=== PATIENT | male | born 1955 | race Caucasian/White ===

== ENCOUNTER 2018-05-02 09:15 | Outpatient (CLI) | payer MEDICARE, SELFPAY ==
[2018-05-02 13:09] LABS: Hemoglobin A1C 8.1 % (4.5-6.2)
[2018-05-02 13:26] LABS: COMMENT (LAB VIEW ONLY) 33.95 mg/dL; Microalb ug/mg Crea 11.5 ug/mg Cr
[2018-05-02 13:33] LABS: Anion Gap 6.5 mmol/L (3-11); BUN 14 mg/dL (7-18); CO2 29.5 mmol/L (21.0-32.0); CREATININE 1.03 mg/dL (0.70-1.30); Calcium 8.7 mg/dL (8.5-10.1); Chloride 102 mmol/L (98-107); Cholesterol 167 mg/dL (50-200); Glucose 192 mg/dL (70-100); HDL Cholesterol 57 mg/dL (40-60); LDL CHOLESTEROL 97 mg/dL (<100); Potassium 3.7 mmol/L (3.5-5.1); Sodium 138 mmol/L (136-145); TSH (W/Ref FT4) 1.74 uIU/mL (0.358-3.74); Triglyceride 121 mg/dL (30-150)
== END 2018-05-02 09:35 ==
PROVIDERS: PCP Family Medicine; Visit Provider Family Medicine
DX: E10.8 Type 1 diabetes mellitus with unspecified complications (principal); E11.9 Type 2 diabetes mellitus without complications; E03.9 Hypothyroidism, unspecified
CPT/HCPCS: 36415; 80048; 80061; 83721; 82043; 82570; 83036; 84443

== ENCOUNTER 2018-07-17 11:43 | Outpatient (CLI) | payer MEDICARE, SELFPAY ==
--- NOTE | 2018-07-17 11:00 | DI.RAD_ITS ---
SYMPTOMS/DIAGNOSIS: CHANGE IN CHRONIC COUGH IN SMOKER, R05, F17.200, NICOTINE DEPENDENCE PA AND LATERAL CHEST: Comparison 05/27/10. The heart size and pulmonary vasculature are within normal limits. No focal infiltrates, effusions or pneumothoraces are identified. The lungs are hyperinflated consistent with underlying COPD. Degenerative changes are seen in the spine. IMPRESSION: COPD. No acute pulmonary process.
== END 2018-07-17 12:03 ==
PROVIDERS: PCP Family Medicine; Visit Provider Family Medicine
DX: R05 Cough (principal); F17.200 Nicotine dependence, unspecified, uncomplicated; J44.9 Chronic obstructive pulmonary disease, unspecified
CPT/HCPCS: 71046

== ENCOUNTER 2019-04-11 09:25 | Outpatient (CLI) | payer MEDICARE, MEDICAID, SELFPAY ==
[2019-04-11 13:37] LABS: Hemoglobin A1C 8.8 % (4.5-6.2)
[2019-04-11 13:43] LABS: ALT 17 U/L (16-63); AST 14 U/L (15-37); Albumin 3.4 g/dL (3.4-5.0); Alkaline Phosphatase 73 U/L (46-116); Anion Gap 5.8 mmol/L (3-11); BUN 16 mg/dL (7-18); Bilirubin, Total 1.1 mg/dL (0.2-1.0); CO2 30.2 mmol/L (21.0-32.0); CREATININE 1.03 mg/dL (0.70-1.30); Calcium 8.3 mg/dL (8.5-10.1); Calculated LDL 104 mg/dL; Chloride 105 mmol/L (98-107); Cholesterol 190 mg/dL (50-200); Glucose 214 mg/dL (70-100); HDL Cholesterol 48 mg/dL (40-60); Sodium 141 mmol/L (136-145); Total Protein 6.1 g/dL (6.4-8.2); Triglyceride 192 mg/dL (30-150); Vitamin B12 506 pg/mL (193-986)
[2019-04-11 14:28] LABS: COMMENT (LAB VIEW ONLY) 121.61 mg/dL; Microalb ug/mg Crea 4.1 ug/mg Cr
[2019-04-11 14:53] LABS: HCT 39.6 % (40.0-50.0); HGB 13.7 g/dL (13.5-17.5); Mean Corp. HGB Concentration 34.6 g/dL (32.0-36.0); Mean Corpuscular Hemoglobin 33.5 pg (27.0-33.0); Mean Corpuscular Volume 96.8 fL (80-95); Mean Platelet Volume 10.9 fL (8.0-11.0); Platelet Count 177 x1000/uL (130-400); RBC 4.09 m/cumm (4.50-6.00); RBC Distribution Width 12.7 % (11.8-14.1); White Blood Cell Count 4.99 k/cumm (4.4-10.8)
== END 2019-04-11 09:45 ==
PROVIDERS: PCP Family Medicine; Visit Provider Family Medicine
DX: E11.9 Type 2 diabetes mellitus without complications (principal); E53.8 Deficiency of other specified B group vitamins
CPT/HCPCS: 36415; 80053; 80061; 85027; 82043; 82570; 82607; 83036

== ENCOUNTER 2020-05-05 11:41 | Outpatient (CLI) | payer MEDICARE, MEDICAID, SELFPAY ==
[2020-05-05 14:09] LABS: Abs Immature Grans 0.02 10^3/uL (0.0-0.06); Absolute Basophil Count 0.03 10^3/uL (0.0-0.2); Absolute Eosinophil Count 0.13 10^3/uL (0.0-0.7); Absolute Lymphocyte Count 1.06 10^3/uL (1.2-3.4); Absolute Monocyte Count 0.39 10^3/uL (0.1-0.8); Absolute Neutrophil Count 4.64 10^3/uL (1.2-6.7); Basophils % 0.5; Eosinophils % 2.1; HCT 40.3 % (40.0-50.0); HGB 14.2 g/dL (13.5-17.5); Immature Grans % 0.3; Lymphocytes % 16.9; MCH 32.3 pg (27.0-33.0); MCHC 35.2 % (32.0-36.0); MCV 91.8 fL (80-95); MPV 10.4 fL (8.0-11.0); Monocytes % 6.2; Nucleated RBC 0 %; Platelet Count 215 10^3/uL (130-400); RBC 4.39 10^6/uL (4.36-5.78); RDW-SD 40.3 fL; WBC 6.27 10^3/uL (4.4-10.8)
[2020-05-05 14:15] LABS: Hemoglobin A1C 8.1 % (<5.7)
[2020-05-05 14:37] LABS: COMMENT (LAB VIEW ONLY) 89.64 mg/dL; Microalb ug/mg Crea 43.8 ug/mg Cr
[2020-05-05 15:01] LABS: ALT 18 U/L (16-63); AST 12 U/L (15-37); Albumin 3.9 g/dL (3.4-5.0); Alkaline Phosphatase 118 U/L (46-116); Anion Gap 9.3 mmol/L (3-11); BUN 23 mg/dL (7-18); Bilirubin, Total 1.1 mg/dL (0.2-1.0); CO2 27.7 mmol/L (21.0-32.0); CREATININE 1.41 mg/dL (0.70-1.30); Calcium 8.4 mg/dL (8.5-10.1); Calculated LDL 102 mg/dL (<100); Chloride 97 mmol/L (98-107); Cholesterol 192 mg/dL (<200); Estimated GFR 50.77 (mL/min/1.73m2); HDL Cholesterol 51 mg/dL (40-60); Potassium 4.3 mmol/L (3.5-5.1); Sodium 134 mmol/L (136-145); TSH 6.49 uIU/mL (0.36-3.74); Total Protein 6.6 g/dL (6.4-8.2); Triglyceride 199 mg/dL (<150)
[2020-05-05 15:08] LABS: Glucose 536 mg/dL (74-106)
== END 2020-05-05 12:01 ==
PROVIDERS: PCP Family Medicine; Visit Provider Family Medicine
DX: E10.69 Type 1 diabetes mellitus with other specified complication (principal); J44.9 Chronic obstructive pulmonary disease, unspecified; I10 Essential (primary) hypertension
CPT/HCPCS: 36415; 80053; 80061; 82043; 82570; 83036; 84443; 85025

== ENCOUNTER 2020-05-05 18:15 | Outpatient (CLI) | payer MEDICARE, MEDICAID, SELFPAY ==
--- NOTE | 2020-05-05 11:30 | DI.RAD_ITS ---
EXAM: XR CHEST 2V PA LATERAL CLINICAL HISTORY: heavy smoker w worsening cough. R05 COUGH TECHNIQUE: 2D digital imaging was performed. COMPARISON: CR XR CHEST 2V PA LATERAL from 07/17/2018 FINDINGS: MEDIASTINUM: Normal. HEART: Normal. PULMONARY VASCULATURE: Normal. LUNGS: There is an area of scarring or infiltrate in the right lung base which was not present on the prior examination. PLEURAL SPACE: No pleural effusion or pneumothorax. BONE:Within normal limits for the patient's age. OTHER FINDINGS:Normal. IMPRESSION: New area of scarring or infiltrate in the right lung base. CT scan of the chest should be considered for further evaluation. DATA REPOSITORY: RADIATION DOSE DELIVERED:
== END 2020-05-05 18:35 ==
PROVIDERS: PCP Family Medicine; Visit Provider Family Medicine
DX: R91.8 Other nonspecific abnormal finding of lung field (principal); F17.210 Nicotine dependence, cigarettes, uncomplicated; R05 Cough; E10.69 Type 1 diabetes mellitus with other specified complication; J44.9 Chronic obstructive pulmonary disease, unspecified; I10 Essential (primary) hypertension
CPT/HCPCS: 36415; 80053; 80061; 71046; 82043; 82570; 83036; 84443; 85025

== ENCOUNTER 2020-05-06 13:29 | Outpatient (CLI) | payer MEDICARE, MEDICAID, SELFPAY ==
--- NOTE | 2020-05-06 09:45 | DI.CT_ITS ---
EXAM: CT CHEST W CLINICAL HISTORY: new infiltrate or scarring Right lower lung on CXR, R91.8 TECHNIQUE: Imaging Protocol: Axial computed tomography images with coronal and sagittal reformatted images were created and reviewed CONTRAST MATERIAL: Intravenous: Omnipaque 350 Contrast volume:70 mL. COMPARISON: CT CHEST WITH CONTRAST from 05/31/2011 CT UPPER ABD WITH CONTRAST (P) from 01/01/2014 CT UPPER ABD WITH CONTRAST (P) from 01/01/2014 CR XR CHEST 2V PA LATERAL from 05/05/2020 FINDINGS: Tracheobronchial tree: Patent where visualized. Mediastinum and Zoila: No dominant adenopathy or fluid collection. Pulmonary parenchyma: No acute consolidating infiltrates. No pulmonary masses. There is unchanged s carring in the right middle lobe, left lingula and the periphery of the left lower lobe. Centrilobul ar emphysematous changes are present in the lungs. Pleura: No effusion or pneumothorax. Heart: The heart is not dilated. Mild coronary artery calcification. No significant pericardial effu xiomy. Aorta: Thoracic aorta non-dilated. Atherosclerosis. Upper abdomen: There is a new wedge-shaped area of decreased attenuation in the upper pole of the ri ght kidney. Lymph nodes: Within normal limits. Bones: Degenerative changes. Soft tissues: Unremarkable. IMPRESSION: 1. Unchanged scarring in the right middle lobe, left lingula and periphery of the left lower lobe. 2. No evidence of a pulmonary mass or thoracic adenopathy. 3. New wedge-shaped area of decreased attenuation in the upper pole of the right kidney. Differentia l considerations include parenchymal scarring, pyelonephritis or neoplasm. CT or MRI of the abdomen is recommended for further evaluation. RADIATION DOSE DELIVERED: 331.96mGy.cm Total DLP DATA REPOSITORY: All CT scans at this facility are submitted to the National Radiology Data Registry (NRDR) Dose Index Registry (DIR) with the [employer] ([employer]). RADIATION OPTIMIZATION: All CT scans at this facility use at least one of these dose optimization te chniques: automated exposure control; mA and/or kV adjustment per patient size (includes targeted exa ms where dose is matched to clinical indication); or iterative reconstruction.
[2020-05-06] MEDS: Omnipaque 350 MG/ML 100 ML BTL IV (15:34)
== END 2020-05-06 13:49 ==
PROVIDERS: PCP Family Medicine; Visit Provider Family Medicine
DX: J98.4 Other disorders of lung (principal); R93.421 Abnormal radiologic findings on diagnostic imaging of right kidney
CPT/HCPCS: 71260; J3490

== ENCOUNTER 2020-05-15 04:15 | Outpatient (CLI) | payer MEDICARE, MEDICAID, SELFPAY ==
--- NOTE | 2020-05-15 13:29 | DI.CT_ITS ---
EXAM: CT ABDOMEN PELVIS W CLINICAL HISTORY: Abnormal CT scan of the right kidney,R93.429 TECHNIQUE: Imaging Protocol: Axial computed tomography images with coronal and sagittal reformatted images were created and reviewed CONTRAST MATERIAL: Intravenous: Omnipaque 350 Contrast volume:99 mL Oral: Yes COMPARISON: CT UPPER ABD WITH CONTRAST (P) from 01/01/[address] CHEST W from 05/06/2020 FINDINGS: ABDOMEN: Lung Bases: Scarring seen in the lung bases. Liver: Normal density. No measurable mass. Portal, Superior Mesenteric, and Splenic Veins: Unremarkable. Gallbladder and Biliary Tract: No radiodense calculus or dilation. Pancreas: Normal density, no abnormal calcifications or inflammatory process. Spleen: Calcified granulomas are seen in the spleen. There are a few areas of decreased attenuation in the spleen. The too small for further characterization. They may reflect small cysts or hemangio ma. Adrenals: No masses seen. Kidneys: Normal size, contour and axis. No radiodense stones or obstructive uropathy. There is a area of severe cortical thinning in the lateral aspect of the right kidney. It appears to reflect renal cortical scarring. Abdominal Aorta: Abdominal portion non-dilated. Atherosclerosis. Bowel: No obstruction or bowel wall thickening. No evidence of acute appendicitis. Peritoneal Cavity: No ascites, collection or mesenteric inflammatory response. Lymph Nodes: Within normal limits. Bones: No acute osseous abnormality. Soft Tissues: Unremarkable. PELVIS: Bladder: Symmetric distention, no gross wall thickening. Reproductive Organs: Unremarkable as visualized. Lymph Nodes: Within normal limits. Bones: Within normal limits. IMPRESSION: Marked cortical thinning of the lateral aspect of the right kidney suspicious for renal cortical scar ring. An MRI of the kidneys without and with contrast may be considered to exclude a mass. RADIATION DOSE DELIVERED: 647.55mGy.cm Total DLP DATA REPOSITORY: All CT scans at this facility are submitted to the National Radiology Data Registry (NRDR) Dose Index Registry (DIR) with the [employer] ([employer]). RADIATION OPTIMIZATION: All CT scans at this facility use at least one of these dose optimization te chniques: automated exposure control; mA and/or kV adjustment per patient size (includes targeted exa ms where dose is matched to clinical indication); or iterative reconstruction.
[2020-05-15] MEDS: Omnipaque 350 MG/ML 100 ML BTL IJ (13:38)
[2020-05-15] MEDS: Normal Saline - Diluent 50 ML VIAL IV (13:39)
[2020-05-15] MEDS: Normal Saline Flush 10 ML SYR IVP (13:40)
[2020-05-15] MEDS: Omnipaque 350 MG/ML 50 ML BTL PO (13:42)
== END 2020-05-15 04:35 ==
PROVIDERS: PCP Family Medicine; Visit Provider Family Medicine
DX: R93.421 Abnormal radiologic findings on diagnostic imaging of right kidney (principal)
CPT/HCPCS: 74177; J3490; Q9967

== ENCOUNTER 2020-09-14 11:07 | Outpatient (CLI) | payer MEDICARE, MEDICAID, SELFPAY ==
[2020-09-14 12:37] LABS: ALT 21 U/L (16-63); AST 18 U/L (15-37); Albumin 3.9 g/dL (3.4-5.0); Alkaline Phosphatase 145 U/L (46-116); Anion Gap 11.7 mmol/L (3-11); BUN 17 mg/dL (7-18); CO2 27.3 mmol/L (21.0-32.0); CREATININE 1.2 mg/dL (0.70-1.30); Calcium 8.5 mg/dL (8.5-10.1); Calculated LDL 131 mg/dL (<100); Chloride 95 mmol/L (98-107); Cholesterol 230 mg/dL (<200); HDL Cholesterol 55 mg/dL (40-60); Sodium 134 mmol/L (136-145); Triglyceride 222 mg/dL (<150)
[2020-09-14 12:40] LABS: Hemoglobin A1C 8.8 % (<5.7)
[2020-09-14 14:22] LABS: Glucose 522 mg/dL (74-106)
[2020-09-14 19:17] LABS: PSA, Screening 0.7 ng/mL (0.0-4.5)
== END 2020-09-14 11:08 | disposition home or self-care (01) ==
LOC: LOS 11:08
PROVIDERS: PCP Family Medicine; Visit Provider Family Medicine
DX: E11.9 Type 2 diabetes mellitus without complications (principal); N40.0 Benign prostatic hyperplasia without lower urinary tract symptoms; Z12.5 Encounter for screening for malignant neoplasm of prostate
CPT/HCPCS: 36415; 80053; 80061; 84153; 83036

== ENCOUNTER 2021-02-18 13:33 | Outpatient (CLI) | payer MEDICARE, MEDICAID, SELFPAY ==
--- NOTE | 2021-02-18 13:15 | DI.RAD_ITS ---
Exam(s) XR FOOT LT COMPLETE EXAM: XR FOOT LT COMPLETE CLINICAL HISTORY: left great toe ulcer with associated cellulitis, r/o osteomylitis, L03.90. TECHNIQUE: 2D digital imaging was performed. COMPARISON: No exams were available for comparison FINDINGS: There is no evidence of fracture nor diastasis of the Lisfranc joint. Triangular density in the medi al aspect of the foot adjacent to the navicular tuberosity is most probably an accessory ossicle or s esamoid within the distal tibialis posterior tendon. There is no inferior calcaneal spur. No pes planus. No obvious radiographic evidence of osteomyelit is IMPRESSION: As above. However, I note that there is a question of possible osteomyelitis of the great toe. Ther efore recommend additional dedicated radiographs of the right great toe. DATA REPOSITORY: RADIATION DOSE DELIVERED:
== END 2021-02-18 13:53 ==
PROVIDERS: PCP Nurse Practitioner Family; Visit Provider Nurse Practitioner Family
DX: L03.032 Cellulitis of left toe (principal); L97.529 Non-pressure chronic ulcer of other part of left foot with unspecified severity
CPT/HCPCS: 73630

== ENCOUNTER 2021-02-19 14:52 | Outpatient (CLI) | payer MEDICARE, MEDICAID, SELFPAY ==
--- NOTE | 2021-02-19 14:45 | DI.RAD_ITS ---
Exam(s) XR TOE LT GREAT EXAM: XR TOE LT GREAT CLINICAL HISTORY: Rule out osteomyelitis L08.9 INFECTION LT TOE TECHNIQUE: COMPARISON: CR XR FOOT LT COMPLETE from 02/18/2021 FINDINGS: Three views were obtained. There is mild soft tissue swelling of the toe. There are degenerative ch anges involving IP joints and the 1st MTP joint. There is no specific evidence of osteomyelitis. If there is a clinical suspicion of osteomyelitis, additional evaluation with would be recommended. IMPRESSION: RADIATION DOSE DELIVERED: Total DLP
== END 2021-02-19 15:12 ==
PROVIDERS: PCP Nurse Practitioner Family; Visit Provider Nurse Practitioner Family
DX: L08.9 Local infection of the skin and subcutaneous tissue, unspecified (principal); M19.072 Primary osteoarthritis, left ankle and foot
CPT/HCPCS: 73660

== ENCOUNTER 2021-04-02 03:34 | Outpatient (CLI) | payer MEDICARE, MEDICAID, SELFPAY ==
[2021-04-02 14:41] LABS: Bilirubin Small (Negative); Blood Negative (Negative); Clarity Clear (Clear); Glucose Negative (Negative); Ketones 15 mg/dL (Negative); Leukocyte Esterase Negative (Negative); Nitrite Negative (Negative); Specific Gravity 1.025 (1.005-1.025); pH 6.5 (5-8)
[2021-04-02 15:01] LABS: Bacteria Moderate HPF (Negative); Crystals Negative HPF (Negative); Epithelial Cells Rare HPF (Negative); Mucus Heavy (Negative); Other Cells Negative (Negative); RBC Negative HPF (0-2)
[2021-04-02 15:02] LABS: C & S Indicated? Yes; Casts Negative LPF (Negative)
[2021-04-02 15:42] LABS: Calculated LDL 81 mg/dL (<100); Cholesterol 181 mg/dL (<200); HDL Cholesterol 61 mg/dL (40-60); TSH 1.65 uIU/mL (0.36-3.74); Triglyceride 198 mg/dL (<150)
[2021-04-02 15:56] LABS: ALT 26 U/L (16-63); AST 23 U/L (15-37); Albumin 4.1 g/dL (3.4-5.0); Alkaline Phosphatase 116 U/L (46-116); Anion Gap 5.9 mmol/L (3-11); BUN 19 mg/dL (7-18); Bilirubin, Total 1.2 mg/dL (0.2-1.0); CO2 33.1 mmol/L (21.0-32.0); CREATININE 1.4 mg/dL (0.70-1.30); Calcium 8.9 mg/dL (8.5-10.1); Chloride 105 mmol/L (98-107); Estimated GFR 51.02 (mL/min/1.73m2); Sodium 144 mmol/L (136-145)
[2021-04-02 16:13] LABS: Glucose 46 mg/dL (74-106)
[2021-04-02 22:24] LABS: PSA, Screening 0.5 ng/mL (0.0-4.5)
== END 2021-04-02 03:35 | disposition home or self-care (01) ==
LOC: LBO 03:34
PROVIDERS: Family Medicine; PCP Nurse Practitioner Family; Visit Provider Nurse Practitioner Family
DX: I10 Essential (primary) hypertension (principal); E11.9 Type 2 diabetes mellitus without complications; R32 Unspecified urinary incontinence; Z12.5 Encounter for screening for malignant neoplasm of prostate; Z80.42 Family history of malignant neoplasm of prostate
CPT/HCPCS: 36415; 80053; 80061; 84153; 81003; 81015; 84443; 87086

== ENCOUNTER 2021-06-29 11:45 | Outpatient (CLI) | payer MEDICARE, MEDICAID, SELFPAY ==
--- NOTE | 2021-06-29 11:30 | DI.RAD_ITS ---
Exam(s) XR ANKLE LT COMPLETE EXAM: XR ANKLE LT COMPLETE CLINICAL HISTORY: L ankle injury TECHNIQUE: 2D digital imaging was performed of the left ankle. Six images were obtained. AP, later al and oblique views were obtained. COMPARISON: No exams were available for comparison FINDINGS: BONES: There is an acute oblique fracture through the distal left fibula. It lies 1.5 cm above the a nkle joint. There is a very mild lateral displacement of the distal fracture. No bony destructive l esion is seen. JOINTS:The ankle mortise is normally aligned. SOFT TISSUE: There is soft tissue swelling laterally. Atherosclerosis is present. IMPRESSION: Oblique minimally displaced fracture involving the distal left fibula with associated soft tissue swe lling. DATA REPOSITORY: RADIATION DOSE DELIVERED:
== END 2021-06-29 11:46 | disposition home or self-care (01) ==
LOC: DIORS 11:46
PROVIDERS: PCP Nurse Practitioner Family; Referring Provider Nurse Practitioner Family; Visit Provider Student in an Organized Health Care Education/Training Program
DX: S82.62XA Displaced fracture of lateral malleolus of left fibula, initial encounter for closed fracture; W00.0XXA Fall on same level due to ice and snow, initial encounter; E10.69 Type 1 diabetes mellitus with other specified complication
CPT/HCPCS: 99203; 99213; 73610

== ENCOUNTER 2021-07-27 14:01 | Outpatient (CLI) | payer MEDICARE, MEDICAID, SELFPAY ==
--- NOTE | 2021-07-27 13:45 | DI.RAD_ITS ---
Exam(s) XR ANKLE LT COMPLETE EXAM: XR ANKLE LT COMPLETE CLINICAL HISTORY: left ankle fx TECHNIQUE: 2D digital imaging was performed of the left ankle. Three images were obtained. AP, lat eral and oblique views were obtained. COMPARISON: CR XR ANKLE LT COMPLETE from 06/29/2021 FINDINGS: BONES: There has been no change in alignment of the distal fibular fracture. No new fracture or disl ocation is seen. No bony destructive lesion is seen. JOINTS:The ankle mortise is normally aligned. SOFT TISSUE: There is soft tissue swelling about the ankle. IMPRESSION: Stable distal fibular fracture. DATA REPOSITORY: RADIATION DOSE DELIVERED:
== END 2021-07-27 14:02 | disposition home or self-care (01) ==
LOC: DIORS 14:02
PROVIDERS: PCP Nurse Practitioner Family; Referring Provider Nurse Practitioner Family; Visit Provider Student in an Organized Health Care Education/Training Program
DX: S82.62XD Displaced fracture of lateral malleolus of left fibula, subsequent encounter for closed fracture with routine healing; X58.XXXD Exposure to other specified factors, subsequent encounter; E10.69 Type 1 diabetes mellitus with other specified complication; I10 Essential (primary) hypertension; J44.9 Chronic obstructive pulmonary disease, unspecified
CPT/HCPCS: 99214; 73610

== ENCOUNTER → 2021-07-29 14:29 | Outpatient (BNVA) | payer MEDICARE, MEDICAID, SELFPAY | PROVIDERS: PCP Nurse Practitioner Family; Referring Provider Student in an Organized Health Care Education/Training Program; Visit Provider Physical Therapy Assistant | DX: S81.802A Unspecified open wound, left lower leg, initial encounter (principal); X58.XXXA Exposure to other specified factors, initial encounter; F17.210 Nicotine dependence, cigarettes, uncomplicated; E10.69 Type 1 diabetes mellitus with other specified complication; J44.9 Chronic obstructive pulmonary disease, unspecified | CPT/HCPCS: 99214 ==

== ENCOUNTER → 2021-08-02 13:35 | Outpatient (BNVA) | payer MEDICARE, MEDICAID, SELFPAY | PROVIDERS: PCP Nurse Practitioner Family; Referring Provider Nurse Practitioner Family; Visit Provider Physical Therapy Assistant | DX: S81.802A Unspecified open wound, left lower leg, initial encounter (principal); X58.XXXA Exposure to other specified factors, initial encounter; E10.9 Type 1 diabetes mellitus without complications; J44.9 Chronic obstructive pulmonary disease, unspecified; F17.210 Nicotine dependence, cigarettes, uncomplicated ==

== ENCOUNTER → 2021-08-03 12:59 | Outpatient (BNVA) | payer MEDICARE, MEDICAID, SELFPAY | PROVIDERS: PCP Nurse Practitioner Family; Referring Provider Nurse Practitioner Family; Visit Provider Physical Therapy Assistant | DX: S81.802A Unspecified open wound, left lower leg, initial encounter (principal); X58.XXXA Exposure to other specified factors, initial encounter; E10.9 Type 1 diabetes mellitus without complications; J44.9 Chronic obstructive pulmonary disease, unspecified; F17.210 Nicotine dependence, cigarettes, uncomplicated | CPT/HCPCS: 99213 ==

== ENCOUNTER → 2021-08-06 11:05 | Outpatient (BNVA) | payer MEDICARE, MEDICAID, SELFPAY | PROVIDERS: PCP Nurse Practitioner Family; Referring Provider Nurse Practitioner Family; Visit Provider Physical Therapy Assistant | DX: S91.002D Unspecified open wound, left ankle, subsequent encounter (principal); X58.XXXD Exposure to other specified factors, subsequent encounter | CPT/HCPCS: 99213 ==

== ENCOUNTER → 2021-08-13 09:54 | Outpatient (BNVA) | payer MEDICARE, MEDICAID, SELFPAY ==
--- NOTE | 2021-11-15 00:11 | ED.PROG_ITS ---
Date of service: 11/15/21 Time of Service: 23:11 Medical Decision Making I was contacted for medical control. Was contacted by ems, patient had been hypoglycemic. Patient was given D10, as well as oral supplementation. Patient is feeling much better and his blood sugar is now in the 120s. Patient is refusing transport by EMS to the ER. EMS reports that patient is ANO x4, family members are there, and will be with him throughout the rest of the evening. EMS made it clear to the patient that they were happy to bring him to the ER, and I was also happy to see him.. Patient has continued to refuse transport and would like to stay at home. Family is in agreement with this plan. EMS reports no other complaints. Discharge Plan Discharge Details Reason For Visit: Wound Care Attending Provider: Anastasiia Infante Primary Care Provider: Zach Childs Home Meds and New Rx's Prescriptions: No Action oxybutynin chloride 5 mg tablet extended release 24hr 5 mg PO DAILY Qty: 90 4RF (DME) lancets [OneTouch Delica Lancets] 33 gauge misc See Rx Instructions .ROUTE .MEDSUPPLY Qty: 400 4RF Rx Instructions: Check blood sugar 3 times a day (DME) OneTouch Ultra Blue Test Strip Strip See Dose Instructions .Route .MEDSUPPLY Qty: 300 4RF Dose Instruction: One BID Rx Instructions: Three times daily valsartan [Diovan] 160 mg tablet 160 mg PO DAILY Qty: 90 3RF lovastatin 20 mg tablet 20 mg PO DAILY Qty: 90 3RF Rx Instructions: 4-2-21 increased dosage/take one tablet daily levothyroxine 100 mcg tablet 100 mcg PO DAILY Qty: 30 11RF vitamin E 400 UNIT tablet 400 unit PO DAILY ginkgo biloba 400 MG capsule 400 mg PO QAM Fish Oil 1 EACH capsule 1 ea PO DAILY thiamine HCl (vitamin B1) [Vitamin B-1] 100 MG tablet 100 mg PO DAILY Qty: 90 4RF (DME) pen needle, diabetic [Comfort EZ Pen Roberts] 31 gauge x 5/16 needle See Dose Instructions .ROUTE .MEDSUPPLY Qty: 300 6RF Dose Instruction: As directed Rx Instructions: 1 each SC 5x/day (DME) blood sugar diagnostic Strip 1 ea Miscellaneous AC & HS Qty: 400 5RF Rx Instructions: DX: E10.65 TYPE I DM, POOR CONTROL, LABILE SUGARS amlodipine 10 mg tablet 10 mg PO DAILY Qty: 90 3RF insulin aspart U-100 [Novolog Flexpen U-100 Insulin] 100 unit/mL (3 mL) insulin pen 6 unit SC TID Qty: 15 2RF Rx Instructions: 2-6 Units per sliding scale sertraline 100 mg tablet 150 mg PO Q24H Qty: 45 11RF Levemir FlexTouch U-100 Insuln 100 unit/mL (3 mL) insulin pen 12 unit SC BID Qty: 15 4RF Gvoke HypoPen 2-Pack 1 mg/0.2 mL auto-injector 1 mg subcut ONCE Qty: 0.4 3RF Rx Instructions: as a single dose; may repeat once after 15 minutes if no response
== END ==
PROVIDERS: PCP Nurse Practitioner Family; Referring Provider Nurse Practitioner Family; Visit Provider Physical Therapy Assistant
DX: S91.002D Unspecified open wound, left ankle, subsequent encounter (principal); X58.XXXD Exposure to other specified factors, subsequent encounter; F17.210 Nicotine dependence, cigarettes, uncomplicated
CPT/HCPCS: 99213

== ENCOUNTER 2022-08-24 18:46 | Emergency (ER) | payer MEDICARE, MEDICAID, SELFPAY ==
[2022-08-24 18:56] VITALS: BP 158/67; PULSE 82; RESP 16; TEMP 36.9; O2SAT 97
--- NOTE | 2022-08-24 19:18 | W.ED.GENAD ---
Discharge Plan Disposition Patient Disposition: Home Discharge Details Clinical Impression: Laceration of skin of scalp, Fall Primary Care Provider: Zach Childs ED Provider: Joceline Chahal Meds and New Rx's Prescriptions: No Action multivitamin Tablet 1 tab PO DAILY valsartan [Diovan] 160 mg tablet 160 mg PO DAILY Qty: 90 3RF lovastatin 20 mg tablet 20 mg PO DAILY Qty: 90 3RF Rx Instructions: 4-2-21 increased dosage/take one tablet daily levothyroxine 100 mcg tablet 100 mcg PO DAILY Qty: 30 11RF thiamine HCl (vitamin B1) [Vitamin B-1] 100 mg tablet 100 mg PO DAILY Qty: 90 4RF vitamin E 400 UNIT tablet 400 unit PO DAILY (DME) pen needle, diabetic [Comfort EZ Pen [place]] 31 gauge x 5/16 needle See Dose Instructions .ROUTE .MEDSUPPLY Qty: 300 6RF Dose Instruction: As directed Rx Instructions: 1 each SC 5x/day Gvoke HypoPen 2-Pack 1 mg/0.2 mL auto-injector 1 mg subcut ONCE Qty: 0.4 3RF Rx Instructions: as a single dose; may repeat once after 15 minutes if no response oxybutynin chloride 5 mg tablet extended release 24hr 5 mg PO DAILY Qty: 90 4RF amlodipine 10 mg tablet 10 mg PO DAILY Qty: 90 3RF fluoxetine 20 mg tablet 20 mg PO DAILY Qty: 90 3RF sertraline 100 mg tablet 150 mg PO Q24H Qty: 45 11RF (DME) blood sugar diagnostic Strip 1 ea Miscellaneous AC & HS Qty: 400 5RF Rx Instructions: DX: E10.65 TYPE I DM, POOR CONTROL, LABILE SUGARS , test up to 4 times daily Levemir FlexTouch U-100 Insuln 100 unit/mL (3 mL) insulin pen 12 unit SC BID Qty: 15 4RF insulin aspart U-100 [Novolog FlexPen U-100 Insulin] 100 unit/mL (3 mL) insulin pen 6 unit SC TID Qty: 15 2RF Rx Instructions: 2-6 Units per sliding scale (DME) lancets [OneTouch Delica Lancets] 33 gauge misc See Rx Instructions .ROUTE .MEDSUPPLY Qty: 400 4RF Rx Instructions: Check blood sugar 3 times a day Discharge Instructions Instructions: Head Injury (ED), Head Laceration (ED) Additional Instructions: Leave the sutures alone for the next 12 to 24 hours. Then you may wash them under running soap and water. No soaking. Sutures need to be removed in 5 to 7 days. Please return or be seen sooner for any signs of infection including increased redness, swelling drainage or any concerns. Please be seen sooner for any vomiting, worsening headache, worsening confusion, numbness tingling or weakness. At this time you have declined head CT and I am unable to rule out skull fracture or underlying intracranial bleeding. Please take Tylenol or Ibuprofen with food every 4-6 hours as needed for pain and swelling. The Xray result is not back yet, we will call you if anything is abnormal. Wear the sling as needed for comfort. Referrals: Zach Childs, TUBE MAN [Primary Care Provider] - 3 days Medical Decision Making Discussed benefits and risks of CT imaging verbalized understanding, I did discuss that I cannot rule out skull fracture or intracranial bleeding without any head CT they declined at this time. Patient denies any headache, loss of consciousness neck pain or blurry vision. Laceration anesthetized with 1% lidocaine with epinephrine. Wound care being performed by radio/tv technician at this time. Patient tolerated well. Patient complaining of left shoulder pain, and additional 1 cc of lidocaine with epi infiltrated to the lower part of the laceration. Patient still declining head CT. Left shoulder x-ray ordered. Laceration anesthetized with 1.5% lidocaine with epinephrine, anesthesia achieved, wound cleaned with normal saline and chlorhexidine. Laceration repaired with four-point no simple interrupted sutures #4. Patient tolerated well. Discussed home care and to have sutures removed in 5 to 7 days. Patient given a sling. Discussed home care instructions. This text was generated using locration system, please disregard any oddities of phrase or misspellings. Imaging Data Radiologic Study: Imaging: X-Ray Radiologist's impression: FINDINGS: Bones/joints: No acute fracture or dislocation Soft tissues: Normal. IMPRESSION: No acute findings. Thank you for allowing us to participate in the care of your patient. Dictated and Authenticated by: David Painting MD [facility] General Mode of arrival: ambulatory. Date/Time Provider Initiated Documentation: 08/24/22 19:05. Limitations to Documentation: no limitations. Information obtained by: patient, RN notes reviewed and old records reviewed. HPI Narrative: 67-year-old male presents to the ER with a chief complaint of left forehead scalp laceration which occurred just approximately an hour prior to arrival. Patient had a mechanical fall where he fell down a step hitting his head on a door frame. He denies any loss of consciousness no neck pain. He does have a past medical history COPD type 1 diabetes mellitus, traumatic brain injury, and need anemia and alcoholism. He does endorse 1 alcoholic beverage prior to arrival. He is alert and oriented no other injuries noted. He denies taking any blood thinners or aspirin daily. Family placed couple of Steri-Strips prior to arrival. Related Data Home Medications Medication Instructions Recorded Confirmed vitamin E 400 unit tablet 400 unit PO DAILY 10/11/12 06/09/22 pen needle, diabetic 31 gauge x #300 ea 03/02/18 06/09/2211/08 (Comfort EZ Pen [place]) levothyroxine 100 mcg tablet 100 mcg PO DAILY #30 tabs 08/12/21 06/09/22 lovastatin 20 mg tablet 20 mg PO DAILY #90 tabs 08/12/21 06/09/22 valsartan 160 mg tablet (Diovan) 160 mg PO DAILY #90 tab-caps 08/12/21 06/09/22 glucagon 1 mg/0.2 mL subcutaneous 1 mg (0.2 mL) subcut ONCE #0.4 mL 10/20/21 06/09/22 auto-injector (Gvoke HypoPen 2-Pack) thiamine HCl (vitamin B1) 100 mg 100 mg PO DAILY #90 tabs 02/10/22 06/09/22 tablet (Vitamin B-1) oxybutynin chloride 5 mg 5 mg PO DAILY #90 tabs 02/14/22 06/09/22 tablet,extended release 24 hr multivitamin 1 tab PO DAILY 03/24/22 06/09/22 amlodipine 10 mg tablet 10 mg PO DAILY #90 tabs 07/07/22 fluoxetine 20 mg tablet 20 mg PO DAILY #90 tabs 07/07/22 sertraline 100 mg tablet 150 mg PO Q24H #45 tabs 07/07/22 blood sugar diagnostic #400 strips 07/15/22 insulin detemir U-100 100 unit/mL 12 unit (0.12 mL) subcut BID #15 mL 08/08/22 (3 mL) subcutaneous pen (Levemir FlexTouch U-100 Insulin) insulin aspart U-100 100 unit/mL 6 unit (0.06 mL) subcut TID #15 mL 08/18/22 (3 mL) subcutaneous pen (Novolog FlexPen U-100 Insulin aspart) lancets 33 gauge (OneTouch Delica #400 ea 08/18/22 Lancets) Previous Rx's Medication Instructions Recorded pen needle, diabetic 31 gauge x #300 ea 03/02/1811/08 (Comfort EZ Pen [place]) levothyroxine 100 mcg tablet 100 mcg PO DAILY #30 tabs 08/12/21 lovastatin 20 mg tablet 20 mg PO DAILY #90 tabs 08/12/21 valsartan 160 mg tablet (Diovan) 160 mg PO DAILY #90 tab-caps 08/12/21 glucagon 1 mg/0.2 mL subcutaneous 1 mg (0.2 mL) subcut ONCE #0.4 mL 10/20/21 auto-injector (Gvoke HypoPen 2-Pack) thiamine HCl (vitamin B1) 100 mg 100 mg PO DAILY #90 tabs 02/10/22 tablet (Vitamin B-1) oxybutynin chloride 5 mg 5 mg PO DAILY #90 tabs 02/14/22 tablet,extended release 24 hr amlodipine 10 mg tablet 10 mg PO DAILY #90 tabs 07/07/22 fluoxetine 20 mg tablet 20 mg PO DAILY #90 tabs 07/07/22 sertraline 100 mg tablet 150 mg PO Q24H #45 tabs 07/07/22 blood sugar diagnostic #400 strips 07/15/22 insulin detemir U-100 100 unit/mL 12 unit (0.12 mL) subcut BID #15 mL 08/08/22 (3 mL) subcutaneous pen (Levemir FlexTouch U-100 Insulin) insulin aspart U-100 100 unit/mL 6 unit (0.06 mL) subcut TID #15 mL 08/18/22 (3 mL) subcutaneous pen (Novolog FlexPen U-100 Insulin aspart) lancets 33 gauge (OneTouch Delica #400 ea 08/18/22 Lancets) Allergies Allergy/AdvReac Type Severity Reaction Status Date / Time No Known Allergies Allergy Verified 06/09/22 11:09 General Stated Complaint: Laceration KAYLIN: 4 Review of Systems All systems reviewed & are unremarkable except as noted in HPI and below Constitutional Constitutional: Denies headache(s) and Denies weakness Eyes Eyes: Denies loss of vision ENT Ears, Nose, Mouth, and Throat: Denies dizziness and Denies headache(s) Cardiovascular Cardiovascular: Denies syncope Musculoskeletal Musculoskeletal: Denies numbness Integumentary/Breasts Skin/Breast: Reports wounds (Left forehead scalp laceration) Neurologic Neurologic: Denies confusion, Denies dizziness, Denies syncope, Denies headache(s), Denies localized weakness, Denies loss of vision, Denies numbness, Denies other visual disturbances and Denies weakness Psychiatric Psychiatric: Denies confusion PFSH All Active Problems (Updated 08/24/22 @ 21:11 by Joceline Chahal NP) Laceration of skin of scalp (Acute) Fall (Acute) Excessive anger (Acute) TBI (traumatic brain injury) (Acute) Nail dystrophy (Acute) Wound of ankle (Acute) Fracture of lateral malleolus of left ankle (Acute 06/17/21) Cough (Acute) COPD (chronic obstructive pulmonary disease) (Chronic) Type I diabetes mellitus with complication, uncontrolled (Chronic 06/06/14) Labile. 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/10/17 [facility]; MILD 10/29/20 [facility] Mild (b/l); kb Essential hypertension (Chronic 06/05/13) Anemia (Acute 06/20/14) macrocytic Alcoholism /alcohol abuse (Chronic 07/22/14) Medical History Abnormal CT of the abdomen Acute endocarditis Alopecia BPH (benign prostatic hyperplasia) Diabetes type I (07/16/13) Type 1 diabetes since age 19. On insulin therapy. Recurrent hypoglycemic spells. Brittle diabetic. Failed continuous glucose monitoring because of noncompliance. Most recent hemoglobin A1c 7.3%. Diabetic ketoacidosis, type I (07/16/13) Off insulin therapy since 07/11/13 because of frequent hypoglycemic spells. Gradual rise in blood sugars to the point it is not detectable on his blood glucose meter. Worsening problems with abdominal pain, tachypnea, and polyuria/polydipsia. 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 Brother , SUDDEN at age 59. Colon cancer Diabetes TYPE I Alcohol abuse Depression Substance abuse Brother Colon cancer Hypertension Maternal Grandfather , 87 Essential hypertension Heart disease Epilepsy Paternal Grandfather , 75 No problems noted. Maternal Grandmother , 47 Depression Kidney disease Paternal Grandmother , 79 Diabetes TYPE I Pancreatic cancer Hypertension Daughter No problems noted. Social History Smoking/Tobacco Use Status: Current every day Tobacco Type: cigarettes Tobacco: How many years used: 40 Quit status: not considering quitting Second Hand Exposure: No Smoking risk assessment performed?: Yes Alcohol Intake: current Alcohol Intake frequency: a few times a week Alcohol type: beer Drug use: Occasionally Substance use type: marijuana Caregiver/Support person: Yes Household members: family, caregiver and other Details: Mother Housing: house Communication Needs: None Do you need help understanding health information?: Often Pets and animals: Yes Pets and animals: cat(s) Sexually active: No Do you think of yourself as: straight/heterosexual Current gender identity: male What is your relationship status?: How often do you talk on the phone with friends or family?: never How often do you get together with friends or relatives?: never How often do you attend scientology or holiness services?: 1-3 times per year Do you belong to any clubs or organized social groups?: no Panel score (0-1 are the most socially isolated patients): 0 What type of physical activity do you participate in: none Duration: < 15 minutes/day Frequency: 3-4 times per week Denisha/Protestant: None Special denisha needs: No Seatbelt use: always Helmet use: No Drive intox or ride w/intox street flusher driver: No Do you feel safe at home: Yes Do you feel safe in your relationship?: Yes Exam Narrative Exam Narrative: General: Well Developed, Awake and Alert, conversant. Skin: Warm and Dry HEENT: Head: No palpable deformities, Normocephalic, laceration noted to the left frontal scalp approximately 3 cm, irregular. Eyes: Pupils PERRLA, EOM's intact. No periorbital eccymosis or step off Ears: Canal patent. Tympanic membranes are clear . No edmondson's sign, no hemptympanum. Nose/Face: Atraumatic. Facial bones nontender to palpation and stable with manipulation. Mouth/Throat: No intraoral trauma. Teeth and mandible are intact. Neck: No midline tenderness, no step off, no deformity to palpation of C-spine. Trachea midline. Neuro: ANO x4, GCS 15, cranial nerves II through XII intact. Motor and sensory exam nonfocal. Reflexes are symmetric. [facility] Head images: 1. Approximately 3 cm laceration which is irregular partial-thickness. Course Vital Signs Vital signs: Vital Signs Temperature 36.9 C 08/24/22 18:56 Pulse 82 08/24/22 18:56 Respiratory Rate 16 08/24/22 18:56 Blood Pressure 158/67 H 08/24/22 18:56 Pulse Oximetry 97 08/24/22 18:56 Temperature 36.9 C 08/24/22 18:56 Temperature Source Oral 08/24/22 18:56 Pulse 82 08/24/22 18:56 Respiratory Rate 16 08/24/22 18:56 Blood Pressure 158/67 H 08/24/22 18:56 Blood Pressure Position Sitting 08/24/22 18:56 Pulse Oximetry 97 08/24/22 18:56 Oxygen Delivery Method Room Air 08/24/22 18:56 Oxygen Flow Rate 0 08/24/22 18:56 Procedures Laceration Laceration 1: Site: face (Left frontal) Side (If applicable): left Size (cm): 3 Description: irregular and clean Depth: simple, single layer Local Anesthetic: Lidocaine 1% and with Epi Amount of anesthesia used (mL): 4 Pre-repair: wound explored, irrigated extensively and deep structures intact Skin layer closed with: nylon Size (cm): 4-0 Number of sutures: 4 Technique: simple, interrupted Technique: simple, interrupted
--- NOTE | 2022-08-24 19:45 | DI.RAD_ITS ---
Exam(s) XR SHOULDER LT COMPLETE 2+V EXAM: XR SHOULDER LT COMPLETE 2+V CLINICAL HISTORY: Fall, Shoulder pain. TECHNIQUE: 2D digital imaging was performed. COMPARISON: No exams were available for comparison FINDINGS: Five views: No evidence of acute fracture or dislocation or abnormal soft tissue calcifications. Subacromial spa ce unremarkable. There are mild degenerative changes in the glenohumeral joint. AC joint unremarkab le. No obvious clavicle fracture. IMPRESSION: As above. No acute osseous findings. DATA REPOSITORY: RADIATION DOSE DELIVERED:
[2022-08-24] MEDS: Acetaminophen 325 MG TAB 650 MG PO (20:19)
--- NOTE | 2022-08-24 21:32 | DI.VRAD_ITS ---
PROCEDURE INFORMATION: Exam: XR Left Shoulder Exam date and time: 08/24/2022 8:36 PM Age: 67 years old Clinical indication: Injury or trauma; Fall; Blunt trauma (contusions or hematomas); Shoulder; Left; Additional info: Fall, shoulder pain TECHNIQUE: Imaging protocol: Radiologic exam of the left shoulder. Views: 2 or more views. COMPARISON: CT CHEST W 05/06/2020 3:12 PM FINDINGS: Bones/joints: No acute fracture or dislocation Soft tissues: Normal. IMPRESSION: No acute findings. Dictated and Authenticated by: David Painting MD. Ordering:RUPALI Car MD
[2022-08-24 21:33] VITALS: BP 160/83; PULSE 99; RESP 16; O2SAT 98
== END 2022-08-24 21:34 | disposition home or self-care (01) ==
PROVIDERS: Emergency Provider Registered Nurse Emergency; PCP Nurse Practitioner Family
DX: S01.81XA Laceration without foreign body of other part of head, initial encounter (principal); M25.512 Pain in left shoulder; W10.8XXA Fall (on) (from) other stairs and steps, initial encounter; E10.9 Type 1 diabetes mellitus without complications
CPT/HCPCS: 12013; 36416; 82962; 99283; 73030

== ENCOUNTER 2022-11-29 18:59 | Outpatient (CLI) | payer MEDICARE, MEDICAID, SELFPAY ==
--- NOTE | 2022-11-29 15:15 | DI.RAD_ITS ---
Exam(s) XR SHOULDER RT COMPLETE 2+V EXAM: XR SHOULDER RT COMPLETE 2+V CLINICAL HISTORY: evaluate pathology M25.511 PAIN RT SHOULDER. TECHNIQUE: 2D digital imaging was performed of the right shoulder. Six images were obtained. AP, G rashey, Y-view and axillary views were obtained. COMPARISON: CR XR CHEST 2V PA LATERAL from 05/05/2020 FINDINGS: BONES: No acute fracture is present. No bony destructive lesion is seen. JOINTS: No dislocation present. Degenerative changes are seen at the acromioclavicular joint and the glenohumeral joint. SOFT TISSUE: Normal. IMPRESSION: Mild degenerative changes of the shoulder. DATA REPOSITORY: RADIATION DOSE DELIVERED:
== END 2022-11-29 19:19 ==
LOC: DI 19:00
PROVIDERS: PCP Nurse Practitioner Family; Visit Provider Nurse Practitioner Family
DX: M19.011 Primary osteoarthritis, right shoulder (principal)
CPT/HCPCS: 73030

== ENCOUNTER 2023-02-07 16:19 | Outpatient (REF) | payer MEDICARE, MEDICAID, SELFPAY | END 2023-02-07 16:20 | disposition home or self-care (01) | LOC: LBN 16:19 | PROVIDERS: PCP Nurse Practitioner Family; Visit Provider Nurse Practitioner Family | DX: S81.812A Laceration without foreign body, left lower leg, initial encounter | CPT/HCPCS: 87070; 87205 ==

== ENCOUNTER → 2023-02-10 11:31 | Outpatient (BNVA) | payer MEDICARE, MEDICAID, SELFPAY | PROVIDERS: PCP Nurse Practitioner Family; Referring Provider Nurse Practitioner Family; Visit Provider Physical Therapy Assistant | DX: S81.811D Laceration without foreign body, right lower leg, subsequent encounter (principal); W19.XXXD Unspecified fall, subsequent encounter | CPT/HCPCS: 11042; 11045 ==

== ENCOUNTER → 2023-02-13 12:59 | Outpatient (BNVA) | payer MEDICARE, MEDICAID, SELFPAY | PROVIDERS: PCP Nurse Practitioner Family; Referring Provider Nurse Practitioner Family; Visit Provider Surgery | DX: S81.811D Laceration without foreign body, right lower leg, subsequent encounter (principal); X58.XXXD Exposure to other specified factors, subsequent encounter | CPT/HCPCS: 11042; 11045; 99212 ==

== ENCOUNTER → 2023-02-20 13:00 | Outpatient (BNVA) | payer MEDICARE, MEDICAID, SELFPAY | PROVIDERS: PCP Nurse Practitioner Family; Referring Provider Nurse Practitioner Family; Visit Provider Surgery | DX: S81.811D Laceration without foreign body, right lower leg, subsequent encounter (principal); X58.XXXD Exposure to other specified factors, subsequent encounter | CPT/HCPCS: 11042; 99212 ==

== ENCOUNTER → 2023-02-28 11:37 | Outpatient (BNVA) | payer MEDICARE, MEDICAID, SELFPAY | PROVIDERS: PCP Nurse Practitioner Family; Referring Provider Nurse Practitioner Family; Visit Provider Surgery | DX: S81.811D Laceration without foreign body, right lower leg, subsequent encounter (principal); X58.XXXD Exposure to other specified factors, subsequent encounter | CPT/HCPCS: 99211 ==

== ENCOUNTER → 2023-03-07 11:38 | Outpatient (BNVA) | payer MEDICARE, MEDICAID, SELFPAY | PROVIDERS: PCP Nurse Practitioner Family; Referring Provider Nurse Practitioner Family; Visit Provider Surgery | DX: S81.811D Laceration without foreign body, right lower leg, subsequent encounter (principal); X58.XXXD Exposure to other specified factors, subsequent encounter | CPT/HCPCS: 11042; 99212 ==

== ENCOUNTER → 2023-03-14 11:07 | Outpatient (BNVA) | payer MEDICARE, MEDICAID, SELFPAY | PROVIDERS: PCP Nurse Practitioner Family; Referring Provider Nurse Practitioner Family; Visit Provider Surgery | DX: S81.811D Laceration without foreign body, right lower leg, subsequent encounter (principal); X58.XXXD Exposure to other specified factors, subsequent encounter | CPT/HCPCS: 99212; 99213 ==

== ENCOUNTER → 2023-03-21 13:06 | Outpatient (BNVA) | payer MEDICARE, MEDICAID, SELFPAY | PROVIDERS: PCP Nurse Practitioner Family; Referring Provider Nurse Practitioner Family; Visit Provider Surgery | DX: S81.811D Laceration without foreign body, right lower leg, subsequent encounter (principal); X58.XXXD Exposure to other specified factors, subsequent encounter | CPT/HCPCS: 99212 ==

== ENCOUNTER → 2023-03-28 13:10 | Outpatient (BNVA) | payer MEDICARE, MEDICAID, SELFPAY | PROVIDERS: PCP Nurse Practitioner Family; Referring Provider Nurse Practitioner Family; Visit Provider Surgery | DX: S81.811D Laceration without foreign body, right lower leg, subsequent encounter (principal); X58.XXXD Exposure to other specified factors, subsequent encounter | CPT/HCPCS: 99212; 99213 ==

== ENCOUNTER → 2023-04-11 12:59 | Outpatient (BNVA) | payer MEDICARE, MEDICAID, SELFPAY | PROVIDERS: PCP Nurse Practitioner Family; Referring Provider Nurse Practitioner Family; Visit Provider Surgery | DX: S81.801D Unspecified open wound, right lower leg, subsequent encounter (principal); X58.XXXD Exposure to other specified factors, subsequent encounter | CPT/HCPCS: 99212 ==

== ENCOUNTER 2023-05-28 16:05 | Emergency (ER) | payer MEDICARE, MEDICAID, SELFPAY ==
[2023-05-28] VITALS (113 sets, daily range): BP systolic 81–180; BP diastolic 24–93; PULSE 83–154; RESP 12–41; TEMP 35.7–37.8; O2SAT 94–99
[2023-05-28 16:14] LABS: BE (Venous) -30 mmol/L (-2-3); HCO3 (Venous) 5 mmol/L (23-28); O2 Sat (Venous) 85 %; TCO2 (Venous) 5 mmol/L (24-29); pCO2 (Venous) 27 mmHg (41-51); pO2 (Venous) 73 mmHg
[2023-05-28 16:16] LABS: Abs Immature Grans 0.27 10^3/uL (0.0-0.06); Basophils % 0.4; Eosinophils % 0.1; HCT 39.5 % (40.0-50.0); HGB 11.6 g/dL (13.5-17.5); Immature Grans % 1.3; Lymphocytes % 5.6; MCH 31.6 pg (27.0-33.0); MCHC 29.4 % (32.0-36.0); MCV 108 fL (80-95); MPV 10.8 fL (8.0-11.0); Monocytes % 4.7; Neutrophils % 87.9; Platelet Count 292 10^3/uL (130-400); RBC 3.67 10^6/uL (4.36-5.78); RDW 12.7 % (11.8-14.1); RDW-SD 50.6 fL; WBC 20.44 10^3/uL (4.4-10.8)
[2023-05-28 16:17] LABS: pH (Venous) 6.83 (7.31-7.41)
[2023-05-28 16:33] LABS: Lactate 8.2 mmol/L (0.6-1.4)
[2023-05-28] MEDS: PROPOFOL 1,000 MG/100 ML BTL 2.07 MG IVPB (16:34)
[2023-05-28 16:37] LABS: Absolute Basophil Count 0.08 10^3/uL (0.0-0.2); Absolute Eosinophil Count 0.02 10^3/uL (0.0-0.7); Absolute Lymphocyte Count 1.14 10^3/uL (1.2-3.4); Absolute Monocyte Count 0.96 10^3/uL (0.1-0.8)
[2023-05-28 16:38] LABS: Absolute Neutrophil Count 17.97 10^3/uL (1.2-6.7); Diff Comment Diff Reviewed; Macrocytosis 1+
[2023-05-28 16:42] LABS: ALT 23 U/L (16-63); AST 77 U/L (15-37); Albumin 3.5 g/dL (3.4-5.0); Alkaline Phosphatase 141 U/L (46-116); Anion Gap 36.5 mmol/L (3-11); BUN 47 mg/dL (7-18); Bilirubin, Total 0.7 mg/dL (0.2-1.0); CO2 5.5 mmol/L (21.0-32.0); CREATININE 2.9 mg/dL (0.70-1.30); Calcium 8.8 mg/dL (8.5-10.1); Chloride 92 mmol/L (98-107); Estimated GFR 23.13 (mL/min/1.73m2); Magnesium 3.2 mg/dL (1.8-2.4); Sodium 134 mmol/L (136-145); Total Protein 6.5 g/dL (6.4-8.2)
[2023-05-28 16:48] LABS: ETHANOL BLOOD < 3.0 mg/dL (<10); Potassium 5.9 mmol/L (3.5-5.1)
[2023-05-28] MEDS: PROPOFOL 1,000 MG/100 ML BTL 20 MG (16:48)
[2023-05-28 16:56] LABS: Glucose 1205 mg/dL (74-106)
[2023-05-28 17:07] LABS: BE (Venous) -26 mmol/L (-2-3); HCO3 (Venous) 7 mmol/L (23-28); O2 Sat (Venous) 95 %; TCO2 (Venous) 8 mmol/L (24-29); pCO2 (Venous) 37 mmHg (41-51); pO2 (Venous) 101 mmHg
[2023-05-28 17:12] LABS: Creatine Kinase 490 U/L (39-308); FREE T4 0.96 ng/dL (0.76-1.46)
[2023-05-28] MEDS: INSULIN REGULAR IN 0.9 % NACL 100 UNIT/100 ML BAG 6 UNIT IV (17:13)
[2023-05-28 17:16] LABS: Bilirubin Negative (Negative); Blood Moderate (Negative); Clarity Clear (Clear); Glucose 500 mg/dL (Negative); Ketones 80 mg/dL (Negative); Leukocyte Esterase Negative (Negative); Nitrite Negative (Negative); Specific Gravity 1.025 (1.005-1.025); Urobilinogen 0.2 mg/dL (Up to 0.2); pH 5.5 (5-8)
--- NOTE | 2023-05-28 17:29 | DI.RAD_ITS ---
Exam(s) XR PORTABLE CHEST AP POST LINE EXAM: XR PORTABLE CHEST AP POST LINE CLINICAL HISTORY: post tube. TECHNIQUE: 2D digital imaging was performed. COMPARISON: CR XR CHEST 2V PA LATERAL from 05/05/2020 FINDINGS: Single AP portable view. Patient is intubated. Distal tip of the endotracheal tube is above the level of the clavicles and ap proximately 8 cm above the daniela. There is an NG tube in the stomach. Heart size is upper normal. The mediastinum is not widened. Lungs are clear. No infiltrates nor obvious pleural effusions. No pneumothorax. No fractures. IMPRESSION: No acute pulmonary findings on this single AP portable view of the chest. Intubated with distal tip of ET tube approximately 8 cm above the daniela. Can be further advanced. NG tube is in stomach. DATA REPOSITORY: RADIATION DOSE DELIVERED:
--- NOTE | 2023-05-28 17:30 | RT.EKG_ITS ---
APPROVED REPORT Exam: Resting ECG Reason for Exam: chest pain Patient Location: E HR:103 bpm ECG Measurements Heart Rate 103 AXIS [place] 187 P 81 QRSd 102 QRS 83 QT 343 T -69 QTc 450 Conclusion Sinus tachycardia [address] segment changes
[2023-05-28 17:31] LABS: *AMPHETAMINES SCREEN URINE Negative (Negative); *BARBITURATES SCREEN URINE Negative (Negative); *BENZODIAZEPINES SCREEN URINE Negative (Negative); Cannabinoids THC Negative (Negative); Cocaine Screen,Urine Negative (Negative); METHADONE URINE SCREEN Negative (Negative); OPIATES URINE SCREEN Negative (Negative)
[2023-05-28 17:32] LABS: Tricyclic Antidepressants Negative (Negative)
[2023-05-28 17:38] LABS: RBC 0-2 HPF (0-2); WBC Negative HPF (0-5)
[2023-05-28 17:39] LABS: Bacteria Negative HPF (Negative); C & S Indicated? No; Casts 0-2 Hyaline LPF (Negative); Crystals Negative HPF (Negative); Epithelial Cells Rare HPF (Negative); Mucus Negative (Negative)
[2023-05-28] MEDS: Norepinephrine in D5W 8 MG/250 ML BAG 9.375 MG IV (17:49)
[2023-05-28] MEDS: Sodium Bicarbonate 50 MEQ/50 ML SYR (17:53)
--- NOTE | 2023-05-28 17:55 | DI.VRAD_ITS ---
PROCEDURE INFORMATION: Exam: XR Chest Exam date and time: 05/28/2023 5:20 PM Age: 68 years old Clinical indication: Other: Post line TECHNIQUE: Imaging protocol: Radiologic exam of the chest. Views: 1 view. COMPARISON: CT CHEST W 05/06/2020 3:12 PM FINDINGS: Endotracheal tube tip at the thoracic inlet. Enteric tube projects to the stomach with side hole just distal to the gastroesophageal junction. Moderate gastric distention Lungs: Unremarkable. No consolidation. Pleural spaces: Unremarkable. No pleural effusion. No pneumothorax. Heart/Mediastinum: Unremarkable. No cardiomegaly. Bones/joints: Unremarkable. IMPRESSION: Tubes as noted No focal consolidation or pneumothorax No central venous catheter visualized on the current images. Correlate clinically Dictated and Authenticated by: David Painting MD. Ordering:DOROTYH Flores MD
--- NOTE | 2023-05-28 18:01 | W.ED.GENAD ---
Discharge Plan Disposition Patient Disposition: Transfer-Acute Inpatient Care Specific Acute Inpt Facility: [facility] Discharge Details Chief Complaint: AMS/LOC Clinical Impression: LAQUITA (acute kidney injury), DKA (diabetic ketoacidosis), Acute hyperglycemia, Acidosis, Respiratory failure Primary Care Provider: Zach Childs ED Provider: Fransico Pinedo Home Meds and New Rx's Prescriptions: No Action multivitamin Tablet 1 tab PO DAILY lovastatin 20 mg tablet 20 mg PO DAILY Qty: 90 3RF Rx Instructions: 4-- increased dosage/take one tablet daily sertraline 100 mg tablet 150 mg PO Q24H Qty: 45 11RF valsartan [Diovan] 160 mg tablet 160 mg PO DAILY Qty: 90 3RF levothyroxine 100 mcg tablet 100 mcg PO DAILY Qty: 30 11RF (DME) pen needle, diabetic [Comfort EZ Pen [place]] 31 gauge x 5/16 needle See Dose Instructions .ROUTE .MEDSUPPLY Qty: 300 6RF Dose Instruction: As directed Rx Instructions: 1 each SC 5x/day oxybutynin chloride 5 mg tablet extended release 24hr 5 mg PO DAILY Qty: 90 4RF amlodipine 10 mg tablet 10 mg PO DAILY Qty: 90 3RF fluoxetine 20 mg tablet 20 mg PO DAILY Qty: 90 3RF (DME) blood sugar diagnostic Strip 1 ea Miscellaneous AC & HS Qty: 400 5RF Rx Instructions: DX: E10.65 TYPE I DM, POOR CONTROL, LABILE SUGARS , test up to 4 times daily Levemir FlexTouch U100 Insulin 100 unit/mL (3 mL) insulin pen 12 unit SC BID Qty: 15 4RF (DME) lancets [OneTouch Delica Lancets] 33 gauge misc See Rx Instructions .ROUTE .MEDSUPPLY Qty: 400 4RF Rx Instructions: Check blood sugar 3 times a day Gvoke HypoPen 2-Pack 1 mg/0.2 mL auto-injector 1 mg subcut ONCE Qty: 0.4 3RF Rx Instructions: as a single dose; may repeat once after 15 minutes if no response insulin aspart U-100 [Novolog FlexPen U-100 Insulin] 100 unit/mL (3 mL) insulin pen 6 unit SC TID Qty: 15 2RF Rx Instructions: 150-200= add 1 unit 201-250= add 2 units 251-300= add 3 units 301-350= add 4 units 351-400= add 5 units 401-450= add 6 units 451-500= add 7 units and notify clinic. Medical Decision Making Emergent evaluation of altered mental status. Initial differential includes DKA, severe electrolyte derangement, intracranial process, sepsis. The patient arrived critically ill. He is not protecting his airway. His initial pH was less than 7. At this time on arrival, I elected to intubate the patient for airway protection. He tolerated the intubation well. Initial pH was treated with 2 A of bicarb. He received approximately 1 L of fluid by EMS prior to arrival. He has no signs of infection or trauma on physical examination. His belly is soft without guarding. Potassium reviewed and stable to start insulin infusion. Started insulin infusion per protocol. Discussed with ICU department and they will accept patient for transfer. Pending bed placement. He has a leukocytosis and a mild anemia which seems stable with baseline previously. Cultures have been sent and broad-spectrum antibiotics initiated. He has a significant LAQUITA. He is requiring Levophed to maintain appropriate blood pressures. 2114: At this time I was notified by one of the nurses that advantage that had been placed by EMS came off in the CT scanner and I evaluated this area and it appears that there is a large laceration over his thumb. Unknown how this occurred. Let applied. Laceration repaired without complication. Nurse reports that the EMS mentioned that he might have cut himself on a beer bottle prior to leaving the house. Unable to assess to assess motor function of the thumb secondary to his current state. His repeat VBG shows a significant improvement in his pH. Will titrate down the respiratory rate. Patient is now comfortably sedated on propofol and fentanyl 2134: Head CT without acute abnormality 2139: Transportation has arrived. Mom updated that the patient is leaving the hospital. Repeat Gluc now 844. Medical Records Medical records reviewed: Yes I reviewed the patient's medical records. Lab Data Lab results reviewed: Yes I reviewed the patient's lab results. ECG Data Attestation: I personally reviewed and interpreted this ECG (s) as follows: Interpretation: Sinus tachycardia 103, nonspecific ST segment changes, no acute ischemic changes HPI General Date/Time Provider Initiated Documentation: 05/28/23 16:17. Limitations to Documentation: altered mental status. Information obtained by: EMS. HPI Narrative: 68-year-old gentleman with past medical history of COPD, TBI, insulin-dependent diabetes presents for evaluation of altered mental status. Per EMS they report that the patient has been confused for the last few days and that the family was assuming that his blood sugar was low since that is usually the problem. So they have been treating his low blood sugar. He reports that today he was minimally responsive Related Data Home Medications Medication Instructions Recorded Confirmed pen needle, diabetic 31 gauge x #300 ea 03/02/18 04/11/2311/08 (Comfort EZ Pen [place]) levothyroxine 100 mcg tablet 100 mcg PO DAILY #30 tabs 08/12/21 04/11/23 oxybutynin chloride 5 mg 5 mg PO DAILY #90 tabs 02/14/22 04/11/23 tablet,extended release 24 hr multivitamin 1 tab PO DAILY 03/24/22 04/11/23 amlodipine 10 mg tablet 10 mg PO DAILY #90 tabs 07/07/22 04/11/23 fluoxetine 20 mg tablet 20 mg PO DAILY #90 tabs 07/07/22 04/11/23 blood sugar diagnostic #400 strips 07/15/22 04/11/23 insulin detemir U-100 100 unit/mL 12 unit (0.12 mL) subcut BID #15 mL 08/08/22 04/11/23 (3 mL) subcutaneous pen (Levemir FlexTouch U-100 Insulin) lancets 33 gauge (OneTouch Delica #400 ea 08/18/22 04/11/23 Lancets) glucagon 1 mg/0.2 mL subcutaneous 1 mg (0.2 mL) subcut ONCE #0.4 mL 01/13/23 04/11/23 auto-injector (Gvoke HypoPen 2-Pack) insulin aspart U-100 100 unit/mL 6 unit (0.06 mL) subcut TID #15 mL 01/13/23 04/11/23 (3 mL) subcutaneous pen (Novolog FlexPen U-100 Insulin aspart) lovastatin 20 mg tablet 20 mg PO DAILY #90 tabs 02/14/23 04/11/23 sertraline 100 mg tablet 150 mg (1.5 x 100 mg) PO Q24H #45 02/14/23 04/11/23 tabs valsartan 160 mg tablet (Diovan) 160 mg PO DAILY #90 tab-caps 02/14/23 04/11/23 Previous Rx's Medication Instructions Recorded pen needle, diabetic 31 gauge x #300 ea 03/02/1811/08 (Comfort EZ Pen [place]) levothyroxine 100 mcg tablet 100 mcg PO DAILY #30 tabs 08/12/21 oxybutynin chloride 5 mg 5 mg PO DAILY #90 tabs 02/14/22 tablet,extended release 24 hr amlodipine 10 mg tablet 10 mg PO DAILY #90 tabs 07/07/22 fluoxetine 20 mg tablet 20 mg PO DAILY #90 tabs 07/07/22 blood sugar diagnostic #400 strips 07/15/22 insulin detemir U-100 100 unit/mL 12 unit (0.12 mL) subcut BID #15 mL 08/08/22 (3 mL) subcutaneous pen (Levemir FlexTouch U-100 Insulin) lancets 33 gauge (OneTouch Delica #400 ea 08/18/22 Lancets) glucagon 1 mg/0.2 mL subcutaneous 1 mg (0.2 mL) subcut ONCE #0.4 mL 01/13/23 auto-injector (Gvoke HypoPen 2-Pack) insulin aspart U-100 100 unit/mL 6 unit (0.06 mL) subcut TID #15 mL 01/13/23 (3 mL) subcutaneous pen (Novolog FlexPen U-100 Insulin aspart) lovastatin 20 mg tablet 20 mg PO DAILY #90 tabs 02/14/23 sertraline 100 mg tablet 150 mg (1.5 x 100 mg) PO Q24H #45 02/14/23 tabs valsartan 160 mg tablet (Diovan) 160 mg PO DAILY #90 tab-caps 02/14/23 Allergies Allergy/AdvReac Type Severity Reaction Status Date / Time No Known Allergies Allergy Verified 04/11/23 13:00 General Stated Complaint: AMS/LOC KAYLIN: 1 PFSH All Active Problems (Updated 05/28/23 @ 21:44 by Fransico Pinedo MD) Respiratory failure (Acute) Acidosis (Acute) Acute hyperglycemia (Acute) DKA (diabetic ketoacidosis) (Acute) LAQUITA (acute kidney injury) (Acute) Excessive anger (Acute) TBI (traumatic brain injury) (Acute) Nail dystrophy (Acute) Wound of ankle (Acute) Fracture of lateral malleolus of left ankle (Acute 06/17/21) Cough (Acute) COPD (chronic obstructive pulmonary disease) (Chronic) Type I diabetes mellitus with complication, uncontrolled (Chronic 06/06/14) Labile. 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, damage, and dysfunction (Chronic) due to episodes hypoglycemia Organic brain syndrome (Chronic) Dr Domingo Neuropsych testing ([place] 03/31 ) repeat 03/06, JOHAN Mild non proliferative diabetic retinopathy (Chronic 03/26/14) OPTICAL EXPRESSIONS-03/26/14 [facility] NPDR-04/27/16 05/10/17 [facility]; MILD 10/29/20 [place] Mild (b/l); kb Essential hypertension (Chronic 06/05/13) Anemia (Acute 06/20/14) macrocytic Alcoholism /alcohol abuse (Chronic 07/22/14) Medical History Urinary incontinence, nocturnal enuresis Hypothyroidism BPH (benign prostatic hyperplasia) Abnormal CT of the abdomen Acute endocarditis Family history of malignant neoplasm of prostate (11/12/12) Vitamin B 12 deficiency (09/09/14) Ventricular septal defect echo 06/08 stable, recheck q 2 yr 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 On insulin therapy. Recurrent hypoglycemic spells. Brittle diabetic. Failed continuous glucose monitoring because of noncompliance. Most recent hemoglobin A1c 7.3%. Diabetic ketoacidosis, type I (07/16/13) Off insulin therapy since 07/11/13 because of frequent hypoglycemic spells. Gradual rise in blood sugars to the point it is not detectable on his blood glucose meter. Worsening problems with abdominal pain, tachypnea, and polyuria/polydipsia. Surgical History Colonoscopy - MAC (09/09/16) Family History Mother A-fib Depression Heart disease Mental disorder Depression Breast cancer Father , 71 Diabetes Type 1 Prostate cancer Sister No problems noted. Brother , SUDDEN at age 59. Colon cancer Diabetes TYPE I Alcohol abuse Depression Substance abuse Brother Colon cancer Hypertension Maternal Grandfather , 87 Essential hypertension Heart disease Epilepsy Paternal Grandfather , 75 No problems noted. Maternal Grandmother , 47 Depression Kidney disease Paternal Grandmother , 79 Diabetes TYPE I Pancreatic cancer Hypertension Daughter No problems noted. Social History Smoking/Tobacco Use Status: Current every day Tobacco Type: cigarettes Tobacco: How many years used: 45 Quit status: not considering quitting Second Hand Exposure: No Smoking risk assessment performed?: Yes Alcohol Intake: current Alcohol Intake frequency: a few times a week Alcohol type: beer Drug use: Occasionally Substance use type: marijuana Caregiver/Support person: Yes Household members: family, caregiver and other Details: Mother Housing: house Communication Needs: None Do you need help understanding health information?: Often Pets and animals: Yes Pets and animals: cat(s) Sexually active: No Do you think of yourself as: straight/heterosexual Current gender identity: male What is your relationship status?: How often do you talk on the phone with friends or family?: never How often do you get together with friends or relatives?: never How often do you attend taoism or jain services?: 1-3 times per year Do you belong to any clubs or organized social groups?: no Panel score (0-1 are the most socially isolated patients): 0 What type of physical activity do you participate in: none Denisha/Episcopal: Religion Special denisha needs: No Seatbelt use: always Helmet use: No Drive intox or ride w/intox operator and truck driver: No Do you feel safe at home: Yes Do you feel safe in your relationship?: Yes Exam Narrative Exam Narrative: Review of Systems: All systems reviewed & are unremarkable except as noted in HPI and below: CONSTITUTIONAL: Ill-appearing, unresponsive HEENT: NCAT EYES: PERRL, no conjunctival injection MOUTH dry MM CVS: Tachycardic, No murmurs or gallops. RESP: kussmaul respirations, tachypnea GI: Soft, Nontender, Nondistended, No organomegaly MSK: Extremities with full range of motion, no deformity or TTP SKIN: Warm, Dry. No rashes or lesions. NEURO: Responding to painful stimuli, not following commands not localizing Course Vital Signs Vital signs: Vital Signs Pulse 113 H 05/28/23 15:59 Respiratory Rate 20 05/28/23 15:59 Blood Pressure 104/37 L 05/28/23 15:59 Pulse Oximetry 97 05/28/23 15:59 Temperature 36.3 C L 05/28/23 17:52 Temperature Source Tympanic 05/28/23 15:59 Pulse 107 H 05/28/23 17:51 Pulse 108 H 05/28/23 17:52 Respiratory Rate 24 05/28/23 17:52 Blood Pressure 107/36 L 05/28/23 17:51 Blood Pressure Mean 62 05/28/23 17:51 Pulse Oximetry 96 05/28/23 17:52 Respiratory End-tidal CO2 32 05/28/23 17:52 Oxygen Delivery Method Mechanical Ventilator 05/28/23 15:59 Oxygen Flow Rate 0 05/28/23 15:59 Fraction of Inspired Oxygen (FIO2) 30 05/28/23 17:20 End Tidal Co2 28 05/28/23 15:59 Lab/Test Results Lab/Test Results: 05/28/23 17:35 Blood Blood Culture - Pending 05/28/23 17:25 Blood Blood Culture - Pending Laboratory Tests Range/Units 05/28/23 05/28/23 05/28/23 16:09 16:55 17:02 WBC (4.4-10.8) 10^3/uL 20.44 H RBC (4.36-5.78) 10^6/uL 3.67 L Hgb (13.5-17.5) g/dL 11.6 L Hct (40.0-50.0) % 39.5 L MCV (80-95) fL 108 H MCH (27.0-33.0) pg 31.6 MCHC (32.0-36.0) % 29.4 L RDW (11.8-14.1) % 12.7 Plt Count (130-400) 10^3/uL 292 MPV (8.0-11.0) fL 10.8 Immature Gran % 1.3 Neutrophils % 87.9 Lymphocytes % 5.6 Monocytes % 4.7 Eosinophils % 0.1 Basophils % 0.4 Nucleated RBC % (0.0-0.3) % 0.0 Absolute Neutrophils (1.2-6.7) 10^3/uL 17.97 H Absolute Lymphocytes (1.2-3.4) 10^3/uL 1.14 L Absolute Monocytes (0.1-0.8) 10^3/uL 0.96 H Absolute Eosinophils (0.0-0.7) 10^3/uL 0.02 Absolute Basophils (0.0-0.2) 10^3/uL 0.08 RBC Morphology See Below Macrocytosis 1+ VBG pH (7.31-7.41) 6.83 L* 6.90 L* VBG pCO2 (41-51) mmHg 27 L 37 L VBG pO2 mmHg 73 101 VBG HCO3 (23-28) mmol/L 5 L 7 L VBG Total CO2 (24-29) mmol/L 5 L 8 L VBG O2 Saturation % 85 95 VBG Base Excess (-2-3) mmol/L -30 L -26 L VBG Lactate (0.6-1.4) mmol/L 8.2 H* Sodium (136-145) mmol/L 134 L Potassium (3.5-5.1) mmol/L 5.9 H Chloride (98-107) mmol/L 92 L Carbon Dioxide (21.0-32.0) mmol/L 5.5 L Anion Gap (3-11) mmol/L 36.5 H BUN (7-18) mg/dL 47 H Creatinine (0.70-1.30) mg/dL 2.9 H Est GFR (CKD-EPI 2020) (mL/min/1.73m2) 23.13 Glucose (74-106) mg/dL 1205 H* Calcium (8.5-10.1) mg/dL 8.8 Magnesium (1.8-2.4) mg/dL 3.2 H Total Bilirubin (0.2-1.0) mg/dL 0.7 AST (15-37) U/L 77 H ALT (16-63) U/L 23 Alkaline Phosphatase (46-116) U/L 141 H Creatine Kinase (39-308) U/L 490 H Total Protein (6.4-8.2) g/dL 6.5 Albumin (3.4-5.0) g/dL 3.5 TSH (0.36-3.74) uIU/mL 5.10 H Free T4 (0.76-1.46) ng/dL 0.96 Urine Color (Yellow) Yellow Urine Clarity (Clear) Clear Urine pH (5-8) 5.5 Ur Specific [place] (1.005-1.025) 1.025 Urine Protein (Negative) mg/dL Trace H Urine Ketones (Negative) mg/dL 80 H Urine Blood (Negative) Moderate H Urine Nitrite (Negative) Negative Urine Bilirubin (Negative) Negative Urine Urobilinogen (Up to 0.2) mg/dL 0.2 Ur Leukocyte Esterase (Negative) Negative Urine RBC (0-2) HPF 0-2 Urine WBC (0-5) HPF Negative Ur Epithelial Cells (Negative) HPF Rare Urine Crystals (Negative) HPF Negative Urine Bacteria (Negative) HPF Negative Urine Casts (Negative) LPF 0-2 Hyaline Urine Mucus (Negative) Negative Ur Culture Indicated? No Urine Glucose (Negative) mg/dL 500 H Urine Opiates Screen (Negative) Negative Urine Methadone Screen (Negative) Negative Ur Barbiturates Screen (Negative) Negative Ur Tricyclics Screen (Negative) Negative Ur Amphetamines Screen (Negative) Negative U Benzodiazepines Scrn (Negative) Negative Urine Cocaine Screen (Negative) Negative Ur THC Screen (Negative) Negative Ethyl Alcohol (<10) mg/dL < 3.0 Procedures Intubation sedative: Etomidate Mg Given: 20 paralytic: Rocuronium Mg Given: 100 Laryngoscope: fiberoptic video scope ET Tube Size: 7.5 Tube Secured Depth (cm): 26 Tube Placement Confirmation: visualized tube passing through cords, equal breath sounds bilaterally, no breath sounds over epigastrum and confirmation by capnometry Patient Tolerated Procedure: well and no complications Intubation Complications: none Laceration Laceration 1: Site: hand (left thumb) Side (If applicable): left Size (cm): 3 Description: linear Depth: simple, single layer Local Anesthetic: other anesthetic (LET) Pre-repair: wound explored and irrigated extensively Skin layer closed with: other (prolene) Size (cm): 3-0 Number of sutures: 6 Technique: simple, interrupted Critical Care Time Critical Care Time Critical Care Time: Yes Total Critical Care Time: 45 Attestation: CRITICAL CARE Upon my evaluation, this patient had a high probability of imminent or life-threatening deterioration due to altered mental status, DKA which required my direct attention, intervention, and personal management. I have personally provided 45 minutes of critical care time exclusive of time spent on separately billable procedures. Time includes review of laboratory data, radiology results, discussion with consultants, and monitoring for potential decompensation. Interventions were performed as documented above
[2023-05-28] MEDS: Sodium Bicarbonate 50 MEQ/50 ML SYR IVP (18:09)
[2023-05-28] MEDS: PIPERACILLIN/TAZO 4.5 GM in Normal Saline 100 ML IVPB (18:31)
[2023-05-28] MEDS: fentaNYL 100 MCG/2 ML VIAL IVP (19:05)
[2023-05-28] MEDS: Normal Saline 1,000 ML 150 ML IV (19:11)
[2023-05-28 19:38] LABS: Anion Gap 31.9 mmol/L (3-11); BUN 56 mg/dL (7-18); CO2 13.1 mmol/L (21.0-32.0); CREATININE 3.3 mg/dL (0.70-1.30); Calcium 8.3 mg/dL (8.5-10.1); Chloride 92 mmol/L (98-107); Estimated GFR 19.81 (mL/min/1.73m2); Potassium 4.9 mmol/L (3.5-5.1); Sodium 137 mmol/L (136-145)
[2023-05-28 19:53] LABS: Glucose 1134 mg/dL (74-106)
[2023-05-28] MEDS: VANCOMYCIN 1,000 MG in Normal Saline 250 ML 166.6666 MG IVPB (20:18)
[2023-05-28 20:33] LABS: BE (Venous) -13 mmol/L (-2-3); HCO3 (Venous) 14 mmol/L (23-28); O2 Sat (Venous) 91 %; TCO2 (Venous) 13 mmol/L (24-29); pCO2 (Venous) 32 mmHg (41-51); pH (Venous) 7.25 (7.31-7.41); pO2 (Venous) 66 mmHg
--- NOTE | 2023-05-28 21:07 | DI.VRAD_ITS ---
PROCEDURE INFORMATION: Exam: CT Head Without Contrast Exam date and time: 05/28/2023 8:46 PM Age: 68 years old Clinical indication: Altered mental status/memory loss; Other: Na TECHNIQUE: Imaging protocol: Computed tomography of the head without contrast. Radiation optimization: All CT scans at this facility use at least one of these dose optimization techniques: automated exposure control; mA and/or kV adjustment per patient size (includes targeted exams where dose is matched to clinical indication); or iterative reconstruction. COMPARISON: No relevant prior studies available. FINDINGS: Brain: Mild volume loss No hemorrhage. Mild white matter disease. No mass effect. Cerebral ventricles: No ventriculomegaly. Paranasal sinuses: Fluid levels in the sphenoid sinuses. Mastoid air cells: Visualized mastoid air cells are well aerated. Bones/joints: Unremarkable. No acute fracture. Soft tissues: Unremarkable. IMPRESSION: No acute intracranial abnormality. Question sphenoid sinusitis Dictated and Authenticated by: David Painting MD. Ordering:TRINI Flores MD
--- NOTE | 2023-05-28 21:11 | DI.CT_ITS ---
Exam(s) CT HEAD WO EXAM: CT HEAD WO CLINICAL HISTORY: altered mental status. TECHNIQUE: Imaging Protocol: Axial computed tomography images with coronal and sagittal reformatted images were created and reviewed COMPARISON: No exams were available for comparison FINDINGS: Patient is intubated. There are no skull fractures. There is fluid level in the sphenoid sinuses. Other paranasal sinuses are clear as are the mastoid air cells. There is no evidence of intracranial hemorrhage, mass effect, or shift of midline structures. There are no extra-axial fluid collections. The ventricles are not enlarged or shifted and there is no blo od within the ventricular system nor within the basal cisterns. Symmetrical atrophy noted IMPRESSION: Symmetrical atrophy evident. No acute intracranial findings. Sphenoid sinusitis evident RADIATION DOSE DELIVERED: Total DLP DATA REPOSITORY: All CT scans at this facility are submitted to the National Radiology Data Registry (NRDR) Dose Index Registry (DIR) with the [employer] (ACR). RADIATION OPTIMIZATION: All CT scans at this facility use at least one of these dose optimization te chniques: automated exposure control; mA and/or kV adjustment per patient size (includes targeted exa ms where dose is matched to clinical indication); or iterative reconstruction.
[2023-05-28 21:27] LABS: BUN 55 mg/dL (7-18); CREATININE 3.2 mg/dL (0.70-1.30); Calcium 8.2 mg/dL (8.5-10.1); Chloride 99 mmol/L (98-107); Estimated GFR 20.56 (mL/min/1.73m2); Potassium 3.7 mmol/L (3.5-5.1); Sodium 141 mmol/L (136-145)
[2023-05-28] MEDS: Lidocaine/Epinephri/Tetracaine Topical Gel 3 ML TP (21:27)
[2023-05-28 21:40] LABS: Glucose 844 mg/dL (74-106)
--- NOTE | 2023-05-29 08:56 | NUR.NOTE ---
Accessed pt chart to get the medications given to patient for pharmacy. Nursing Note:
--- NOTE | 2023-05-29 10:00 | NUR.NOTE ---
Accessed chart to determine orders for EKG and to determine whether or not one needs to be cancelled. Nursing Note:
--- NOTE | 2023-05-31 08:33 | ED.FU.B_ITS ---
Follow Up Plan: Blood cultures positive, gram-positive cocci, forted to [facility] where patient was transferred on at 1918
--- NOTE | 2023-05-31 08:33 | W.ED.FU ---
Follow Up Plan: Blood cultures positive, gram-positive cocci, forted to [facility] where patient was transferred on at 1918
== END 2023-05-28 22:01 | disposition short-term general hospital (02) ==
PROVIDERS: Emergency Provider Emergency Medicine; PCP Nurse Practitioner Family
DX: J96.90 Respiratory failure, unspecified, unspecified whether with hypoxia or hypercapnia (principal); E11.10 Type 2 diabetes mellitus with ketoacidosis without coma; N17.9 Acute kidney failure, unspecified; S61.112A Laceration without foreign body of left thumb with damage to nail, initial encounter; W26.9XXA Contact with unspecified sharp object(s), initial encounter; R41.82 Altered mental status, unspecified; J44.9 Chronic obstructive pulmonary disease, unspecified; Z81.1 Family history of alcohol abuse and dependence
CPT/HCPCS: 12002; 31500; 36410; 36416; 51702; 71045; 80048; 80053; 80307; 82550; 82805; 82962; 87040; 87077; 93005; 96365; 96366; 96367; 96368; 96375; 99291; 70450; 80320; 81003; 81015; 83605; 83735; 84439; 84443; 85025; 87086; 87186; 93010; J2543; J3010